=== PATIENT | male | born 1995 | race Caucasian/White ===

== ENCOUNTER 2016-11-29 03:55 | Emergency (ER) | payer OTHER, SELFPAY ==
[2016-11-29] MEDS ORDERED: HYDROcodone/Acetaminophen 5/325 mg Tablet ONE (05:27)
--- NOTE | 2016-11-29 08:07 | RAD ---
RIGHT SHOULDER RADIOGRAPHS 3 VIEWS: DATE: 11/29/16. PROVIDED CLINICAL HISTORY: Right shoulder pain status post injury. FINDINGS: There is prominent caudal displacement of the acromion with respect to the distal clavicle. There i s widening of the coracoclavicular distance. The glenohumeral relationship appears normal. There i s no evidence for a fracture. The visualized right lung field appears clear. IMPRESSION: Findings compatible with grade III acromioclavicular joint injury. Orthopedic consultation is recom mended. CODE T POS: CET
== END 2016-11-29 05:30 | disposition home or self-care (01) ==
LOC: ERS 03:55
DX: S43.101A Unspecified dislocation of right acromioclavicular joint, initial encounter (principal); F17.290 Nicotine dependence, other tobacco product, uncomplicated; V00.131A Fall from skateboard, initial encounter